=== PATIENT | female | born 1995 | race Caucasian/White ===

== ENCOUNTER 2025-04-02 06:14 | Inpatient (IN) | payer MEDICAID ==
[~2025-04-02] VITALS: Ht 170.2 cm; Wt 58.7 kg
[2025-04-02 06:55] LABS: UCG KIT EXPIRATION DATE 1-3-27; UCG KIT LOT# 0000958452; UCG SCREEN NEGATIVE
[2025-04-02] MEDS ORDERED: BUPIVACAINE HCL/PF 0.5% (5MG/ML) 10ML ONE ×2 (07:24→08:31)
[2025-04-02] MEDS: LACTATED RINGERS 1,000 ML IV SCH (07:33)
[2025-04-02] MEDS ORDERED: ONDANSETRON HCL 4MG/2ML INJ ONE (07:41)
[2025-04-02] MEDS ORDERED: ROCURONIUM BROMIDE 10MG/ML VIAL 5ML IV ONE (07:41)
[2025-04-02] MEDS ORDERED: PROPOFOL 200MG/20ML VIAL IV ONE (07:42)
[2025-04-02] MEDS ORDERED: FENTANYL CITRATE/PF 50MCG/ML 2ML VIAL ONE (07:42)
[2025-04-02] MEDS ORDERED: MIDAZOLAM HCL 2 MG/2 ML VIAL ONE ×2 (07:42→09:20)
[2025-04-02] MEDS ORDERED: SUCCINYLCHOLINE CHLORIDE 200MG/10ML IV ONE (07:44)
[2025-04-02] MEDS ORDERED: CEFAZOLIN SODIUM 1000MG/VIAL ONE (07:44)
[2025-04-02] MEDS ORDERED: LIDOCAINE HCL 1% 20ML VIAL ONE (08:02)
[2025-04-02] MEDS ORDERED: ONDANSETRON HCL 4MG/2ML INJ IV PRN (08:15)
[2025-04-02] MEDS ORDERED: HYDRALAZINE 20MG/ML VIAL IV PRN ×2 (08:30)
[2025-04-02] MEDS ORDERED: LABETALOL 5MG/ML 4ML INJ IV PRN (08:30)
[2025-04-02] MEDS ORDERED: MEPERIDINE HCL/PF 25MG/ML CPJ IV PRN (08:30)
[2025-04-02] MEDS ORDERED: NALOXONE HCL 0.4MG/ML VIAL IV PRN ×2 (08:30)
[2025-04-02] MEDS ORDERED: HYDROMORPHONE HCL/PF 2MG/ML INJ ONE (09:19)
[2025-04-02] MEDS: ACETAMINOPHEN 1,000MG/100ML PREMIX IV PRN (09:47)
[2025-04-02] MEDS: HYDROMORPHONE HCL/PF 1MG/ML INJ IV PRN (09:51)
[2025-04-02] MEDS: ONDANSETRON HCL 4MG/2ML INJ IV PRN ×2 (11:24→16:47)
[2025-04-02 11:32] LABS: CREATININE 0.8 mg/dL (0.6-1.0)
[2025-04-02 11:33] LABS: UREA NITROGEN BLOOD 7 mg/dL (9-23)
[2025-04-02 12:00] VITALS: BP 128/70; PULSE 51; RESP 16; TEMP 36.3; TEMP 36.3624; O2SAT 99
[2025-04-02] MEDS: DEXT 5%/0.45% NACL KCL 20MEQ/L 1,000 ML IV SCH (12:00)
[2025-04-02 12:02] LABS: BASOPHILS % 0.4 % (0.0-2.0); EOSINOPHILS % 0.7 % (0.0-5.0); HEMATOCRIT. 38.8 % (36.0-48.0); HEMOGLOBIN. 12.8 g/dL (12.0-16.0); LYMPHOCYTES % 11.6 % (20.0-50.0); MEAN PLATELET VOLUME 7.4 fl (7.4-10.4); MONOCYTES % 3.6 % (2.0-8.0); NEUTROPHILS % 83.7 % (40.0-76.0); PLATELET 287 x1000/uL (130-400); RED BLOOD CELL COUNT 4.21 mill/uL (4.2-5.4); RED CELL DISTRIBUTION WIDTH 14.0 % (11.6-14.6)
[2025-04-02] MEDS: MORPHINE SULFATE 2 MG/ML INJ (NOT FOR IM USE) IV PRN (13:04)
[2025-04-02] MEDS ORDERED: IPRATROPIUM/ALBUTEROL 0.5-3(2.5)MG/3ML NEB HHN PRN (14:00)
[2025-04-02] MEDS: ENOXAPARIN 40MG/0.4ML SYR SUBCUT SCH (14:39)
[2025-04-02] MEDS: FAMOTIDINE 20MG/2ML VIAL IV PRN (14:39)
[2025-04-02 16:00] VITALS: BP 108/76; PULSE 61; RESP 55; TEMP 36.5; O2SAT 98
[2025-04-02] MEDS: MORPHINE SULFATE 4 MG/ML INJ (FOR IV/IM USE) IV PRN (16:41)
[2025-04-02 20:00] VITALS: BP 118/72; PULSE 53; RESP 18; TEMP 36.3; O2SAT 98
[2025-04-02] MEDS: FAMOTIDINE 20MG/2ML VIAL IV NR (21:52)
[2025-04-03] VITALS: BP 118/78; PULSE 53; RESP 18; TEMP 36.3; O2SAT 97
[2025-04-03 04:00] VITALS: BP 124/67; PULSE 58; RESP 18; TEMP 36.4; O2SAT 99
[2025-04-03 08:00] VITALS: BP 138/79; PULSE 52; RESP 18; TEMP 36.8; O2SAT 98
[2025-04-03] MEDS: PANTOPRAZOLE SODIUM 40 MG/VIAL IV SCH (11:15)
[2025-04-03 16:00] VITALS: BP 116/76; PULSE 69; RESP 18; TEMP 36.3; O2SAT 95
[2025-04-03 19:05] LABS: PLATELET 301 x1000/uL (130-400); RED BLOOD CELL COUNT 4.38 mill/uL (4.2-5.4); RED CELL DISTRIBUTION WIDTH 13.9 % (11.6-14.6)
[2025-04-03 19:18] LABS: CREATININE 0.7 mg/dL (0.6-1.0)
[2025-04-03 19:19] LABS: UREA NITROGEN BLOOD < 5 mg/dL (9-23)
[2025-04-03 20:00] VITALS: BP 115/75; PULSE 68; RESP 18; TEMP 36.4; O2SAT 99
[2025-04-04] VITALS: BP 125/66; PULSE 78; RESP 20; TEMP 36.4; O2SAT 97
[2025-04-04 04:00] VITALS: BP 109/76; PULSE 81; RESP 20; TEMP 36.3; O2SAT 95
[2025-04-04 08:00] VITALS: BP 102/65; PULSE 71; RESP 18; TEMP 36.6; O2SAT 96
[2025-04-04 08:20] LABS: CREATININE 0.7 mg/dL (0.6-1.0)
[2025-04-04 08:21] LABS: UREA NITROGEN BLOOD < 5 mg/dL (9-23)
[2025-04-04 08:30] LABS: PLATELET 266 x1000/uL (130-400); RED BLOOD CELL COUNT 4.03 mill/uL (4.2-5.4); RED CELL DISTRIBUTION WIDTH 13.9 % (11.6-14.6)
[2025-04-04 12:00] VITALS: BP 103/69; PULSE 63; RESP 18; TEMP 36.6; O2SAT 98
[2025-04-04 16:00] VITALS: BP 97/52; PULSE 74; RESP 17; TEMP 37.1; O2SAT 99
[2025-04-04 20:00] VITALS: BP 103/61; PULSE 91; RESP 18; TEMP 37.1; O2SAT 100
[2025-04-05 04:00] VITALS: BP 106/81; PULSE 64; RESP 18; TEMP 36.5; O2SAT 98
[2025-04-05] MEDS: DICLOFENAC SODIUM 1% GEL 50GM TOP PRN (06:37)
[2025-04-05 08:00] VITALS: BP 116/80; PULSE 78; RESP 18; TEMP 36.3; O2SAT 98
[2025-04-05 09:31] LABS: PLATELET 268 x1000/uL (130-400); RED BLOOD CELL COUNT 4.15 mill/uL (4.2-5.4); RED CELL DISTRIBUTION WIDTH 14.1 % (11.6-14.6)
[2025-04-05 09:46] LABS: CREATININE 0.6 mg/dL (0.6-1.0)
[2025-04-05 09:47] LABS: UREA NITROGEN BLOOD < 5 mg/dL (9-23)
[2025-04-05 09:49] LABS: PHOSPHORUS 3.5 mg/dL (2.5-4.9)
[2025-04-05 12:00] VITALS: BP 103/67; PULSE 69; RESP 18; TEMP 36.5; O2SAT 100
[2025-04-05 20:00] VITALS: BP 96/60; PULSE 81; RESP 20; TEMP 36.6; O2SAT 95
[2025-04-06] VITALS: BP 107/71; PULSE 82; RESP 20; TEMP 36.4; O2SAT 98
[2025-04-06 04:00] VITALS: BP 104/75; PULSE 77; RESP 18; TEMP 36.6; O2SAT 96
[2025-04-06 08:00] VITALS: BP 101/57; PULSE 82; RESP 18; TEMP 36.7; O2SAT 100
[2025-04-06 10:09] VITALS: PULSE 94; RESP 18; O2SAT 99
[2025-04-06 12:00] VITALS: BP 111/79; PULSE 66; RESP 18; TEMP 36.8; O2SAT 100
[2025-04-06 17:32] VITALS: BP 108/74; PULSE 89; RESP 18; TEMP 97.9
== END 2025-04-06 18:25 | disposition home or self-care (01) | DRG 230 ==
LOC: OR 06:14 → 6EST 06:15
PROVIDERS: ADMIT Internal Medicine; ATTEND Internal Medicine
PROC: 0D1B0Z4 Bypass Ileum to Cutaneous, Open Approach (ICD-10-PCS; principal; 2025-04-02)
DX: Z43.2 Encounter for attention to ileostomy (principal); K56.7 Ileus, unspecified; Z79.899 Other long term (current) drug therapy
CPT/HCPCS: 36415; 80048; 81025; 83735; 84100; 85025; 85027; 86850; 86900; 88305; 93005; 94070; 94664; 94760; 97162; 98960; A4606; J0330; J0665; J0690; J1171; J1308; J1650; J2003; J2250; J2270; J2405; J2470; J2704; J3010; J3490; J0131